=== PATIENT | male | born 1985 | race Two or more races ===

== ENCOUNTER 2020-08-04 12:30 | Emergency (ER) | payer BC ==
[~2020-08-04] VITALS: Ht 172.7 cm; Wt 87.0 kg
[2020-08-04 12:43] VITALS: BP 147/87
== END 2020-08-04 13:40 | disposition home or self-care (01) ==
LOC: ED 13:37
DX: B02.9 Zoster without complications (principal); F17.200 Nicotine dependence, unspecified, uncomplicated
CPT/HCPCS: 99283